=== PATIENT | male | born 1995 | race Caucasian/White ===

== ENCOUNTER 2021-12-25 08:25 | Outpatient (CLI) | payer OTHER | END 2021-12-25 08:29 | disposition home or self-care (01) | LOC: LAB 08:25 | PROVIDERS: ATTEND Obstetrics & Gynecology | DX: Z20.818 Contact with and (suspected) exposure to other bacterial communicable diseases (principal); Z20.828 Contact with and (suspected) exposure to other viral communicable diseases ==